=== PATIENT | female | born 1990 | race Caucasian/White ===

== ENCOUNTER 2019-08-28 02:15 | Emergency (ER) | payer BC, OTHER ==
[2019-08-28] MEDS ORDERED: Sodium Chloride 0.9% 10 ML Syringe FLUSH PRN (02:30)
[2019-08-28] MEDS ORDERED: Sodium Chloride 0.9% 2.5 ML Syringe FLUSH PRN (02:30)
[2019-08-28] MEDS ORDERED: Sodium Chloride 0.9% 10 ML SDV IV PRN (02:30)
[2019-08-28] MEDS ORDERED: Acetaminophen 500 MG Tab PO ONE (02:30)
--- NOTE | 2019-08-28 02:34 | EDM.PDOC ---
ED HPI GENERAL MEDICAL PROBLEM - General Chief Complaint: [facility] Problem Stated Complaint: BACK PAIN, Time Seen by Provider: 08/28/19 02:16 Source of Information: Reports: Patient History Limitations: Reports: No Limitations - History of Present Illness INITIAL COMMENTS - FREE TEXT/NARRATIVE: 29-year-old female with a past medical history of factor V Leiden disease, presenting with back pain. 2-day history of bilateral low back pain with vaginal bleeding. Patient states that she had a positive test last week. She went to an OB clinic in [place], [place] where she reportedly had an ultrasound done. They were not able to demonstrate cardiac activity due to early gestational age, but there was some concern for subchorionic hemorrhage. Yesterday evening, the patient began experiencing low back pain along with vaginal bleeding, she states that she was passing tissue. The bleeding has decreased over the past 24 hours, she is only spotting now. She took one 500 mg acetaminophen tablet about 2 to 3 hours prior to arrival. Denies any other complaints. Lower Back Pain Score (Numeric/FACES): 7 - Related Data Allergies Allergy/AdvReac Type Severity Reaction Status Date / Time No Known Allergies Allergy Verified 08/28/19 02:58 Home Meds: Home Meds Escitalopram Oxalate 5 mg PO DAILY 08/28/19 [History] Lisdexamfetamine [Vyvanse] 30 mg PO ASDIRECTED 08/28/19 [History] metroNIDAZOLE [Metronidazole] 500 mg PO BID 7 Days #14 tablet 08/28/19 [Rx] Past Medical History Other Cardiovascular History: Factor V Leiden disease Social & Family History - Family History Cardiac: Reports: Other (See Below) (Factor V Leiden) ED ROS GENERAL - Review of Systems Review Of Systems: See Below Constitutional: Denies: Fever, Chills HEENT: Reports: No Symptoms Respiratory: Denies: Shortness of Breath Cardiovascular: Denies: Chest Pain Endocrine: Reports: No Symptoms GI/Abdominal: Denies: Abdominal Pain, Bloody Stool, Hematemesis, Melena, Nausea , Vomiting : Reports: Other (Vaginal bleeding). Denies: Discharge, Dysuria, Flank Pain, Frequency, Hematuria, Urgency Musculoskeletal: Reports: Back Pain Skin: Reports: No Symptoms Neurological: Reports: No Symptoms Psychiatric: Reports: No Symptoms Hematologic/Lymphatic: Reports: No Symptoms Immunologic: Reports: No Symptoms ED EXAM - Physical Exam Exam: See Below Text/Narrative:: Vital signs reviewed. Nursing notes reviewed. Constitutional: Awake, alert, non-distressed. Head: Normocephalic, atraumatic. Eyes: EOMI, conjunctiva normal, no discharge, no scleral icterus. Ears, Nose, Throat: External ears and ears normal, moist oral mucosa. Cardiovascular: 2+ radial pulse, capillary refill less than 2 seconds. Pulmonary: normal work of breathing, no accessory muscle use. Abdomen/GI: Soft, nontender, nondistended, no guarding or rigidity, no masses. Musculoskeletal: No deformities. Mild tenderness to palpation to the bilateral low back, no tenderness over the spine. Integumentary: Appropriate color for ethnicity, skin is slightly moist, warm, no pallor or jaundice, no rash. Neurologic: Alert, answering questions appropriately, normal speech, no facial droop, moving all extremities well. Psychiatric: Appropriate mood and affect, normal thought process. (Female) Exam: Normal External Exam, Vaginal Bleeding. No: Cervical Dilatation, Cervical Discharge, Cervical Lesions, Tissue Present in Cervix/ Vagina, Vaginal Discharge, Vaginal Lesions, Vaginal Tears Course - Vital Signs Text/Narrative:: Patient hemodynamically stable, afebrile, well-appearing, looks nontoxic. Differential diagnosis includes but is not limited to: portion, incomplete , ectopic , implantation bleeding, molar , cervicitis, and many others. CBC shows a leukocytosis to 20.54 without fever, dysuria, vaginal discharge, abdominal pain to suggest infection. No other infectious symptoms such as cough , shortness of breath, neck stiffness, rash, abdominal pain, diarrhea, vomiting , etc. Patient appears nontoxic. She is not tachycardic. BMP shows mild hypokalemia. Beta hCG is 3526. Urinalysis shows moderate blood and trace leukocyte esterase without urinary infectious symptoms. Blood type is O+. Genital swabs were positive for Gardnerella. 0422: Patient resting comfortably. Awaiting radiology ultrasound read. Transvaginal ultrasound demonstrated no definite intrauterine but did demonstrate thickened endometrium and a hypoechoic oval focus (possible abnormal gestational sac?) Patient will need a repeat ultrasound and repeat beta-hCG level as an outpatient with [facility] given that it is not clear if this is a completed or a of unknown viability at this point. Patient is hemodynamically stable, with no abdominal tenderness or lightheadedness or near syncopal symptoms. Patient is stable to discharge home with outpatient [facility] follow-up. Prescribed oral metronidazole. Strict emergency department/ectopic return precautions were provided, patient indicated understanding. All questions were answered prior to departure. Discharged in good condition. Last Recorded V/S: Last Vital Signs Temp 36.9 C 08/28/19 05:15 Pulse 77 08/28/19 05:15 Resp 16 08/28/19 05:15 BP 120/74 08/28/19 05:15 Pulse Ox 99 08/28/19 05:15 - Orders/Labs/Meds Orders: Active Orders 24 hr Category Date Time Status Pulse Oximetry [RC] ASDIRECTED Care 08/28/19 02:29 Active CHLAMYDIA AND GONORRHEA BY TMA Stat Lab 08/28/19 02:42 Received Sodium Chloride 0.9% [Normal Saline] Med 08/28/19 02:30 Active 10 ml IV ASDIRECTED PRN Sodium Chloride 0.9% [Saline Flush] Med 08/28/19 02:30 Active 10 ml FLUSH ASDIRECTED PRN Sodium Chloride 0.9% [Saline Flush] Med 08/28/19 02:30 Active 2.5 ml FLUSH ASDIRECTED PRN Peripheral IV Insertion Adult [OM.PC] Stat Oth 08/28/19 02:29 Ordered Medication Orders Sodium Chloride (Saline Flush) 10 ml FLUSH ASDIRECTED PRN PRN Reason: Keep Vein Open Last Admin: 08/28/19 03:43 Dose: 10 ml Sodium Chloride (Saline Flush) 2.5 ml FLUSH ASDIRECTED PRN PRN Reason: Keep Vein Open Last Admin: 08/28/19 03:42 Dose: 2.5 ml Sodium Chloride (Normal Saline) 10 ml IV ASDIRECTED PRN PRN Reason: IV Use Labs: Laboratory Tests 08/28/19 08/28/19 08/28/19 Range/Units 02:30 02:30 02:42 WBC (4.0-11.0) K/uL RBC (4.30-5.90) M/uL Hgb (12.0-16.0) g/dL Hct (36.0-46.0) % MCV (80.0-98.0) fL MCH (27.0-32.0) pg MCHC (31.0-37.0) g/dL RDW Std Deviation (28.0-62.0) fl RDW Coeff of Bart (11.0-15.0) % Plt Count (150-400) K/uL MPV (7.40-12.00) fL Neut % (Auto) (48.0-80.0) % Lymph % (Auto) (16.0-40.0) % Dundy % (Auto) (0.0-15.0) % Eos % (Auto) (0.0-7.0) % Baso % (Auto) (0.0-1.5) % Neut # (Auto) (1.4-5.7) K/uL Lymph # (Auto) (0.6-2.4) K/uL Dundy # (Auto) (0.0-0.8) K/uL Eos # (Auto) (0.0-0.7) K/uL Baso # (Auto) (0.0-0.1) K/uL Nucleated RBC % /100WBC Nucleated RBCs # K/uL Sodium (136-145) mmol/L Potassium (3.5-5.1) mmol/L Chloride (98-107) mmol/L Carbon Dioxide (21.0-32.0) mmol/L BUN (7.0-18.0) mg/dL Creatinine (0.6-1.0) mg/dL Est Cr Clr Drug Dosing mL/min Estimated GFR (MDRD) ml/min Glucose (74-106) mg/dL Calcium (8.5-10.1) mg/dL HCG, Quant mIU/mL Urine Color YELLOW Urine Appearance SLT CLOUDY Urine pH 6.5 (5.0-8.0) Ur Specific [place] 1.010 (1.001-1.035) Urine Protein NEGATIVE (NEGATIVE) mg/dL Urine Glucose (UA) NEGATIVE (NEGATIVE) mg/dL Urine Ketones NEGATIVE (NEGATIVE) mg/dL Urine Occult Blood MODERATE H (NEGATIVE) Urine Nitrite NEGATIVE (NEGATIVE) Urine Bilirubin NEGATIVE (NEGATIVE) Urine Urobilinogen 0.2 (<2.0) EU/dL Ur Leukocyte Esterase TRACE H (NEGATIVE) Urine RBC 1-3 (0-2/HPF) Urine WBC 0-2 (0-5/HPF) Ur Epithelial Cells RARE (NONE-FEW) Urine Bacteria RARE (NEGATIVE) Urine HCG, Qual POSITIVE (NEGATIVE) Jessie species DNA NEGATIVE (NEGATIVE) Gardnerella DNA Probe POSITIVE H (NEGATIVE) Trichomonas DNA Probe NEGATIVE (NEGATIVE) Blood Type 08/28/19 08/28/19 08/28/19 Range/Units 02:45 02:45 02:45 WBC 20.54 H (4.0-11.0) K/uL RBC 4.22 L (4.30-5.90) M/uL Hgb 11.9 L (12.0-16.0) g/dL Hct 36.0 (36.0-46.0) % MCV 85.3 (80.0-98.0) fL MCH 28.2 (27.0-32.0) pg MCHC 33.1 (31.0-37.0) g/dL RDW Std Deviation 44.1 (28.0-62.0) fl RDW Coeff of Bart 14 (11.0-15.0) % Plt Count 258 (150-400) K/uL MPV 9.20 (7.40-12.00) fL Neut % (Auto) 76.5 (48.0-80.0) % Lymph % (Auto) 16.9 (16.0-40.0) % Dundy % (Auto) 5.3 (0.0-15.0) % Eos % (Auto) 1.2 (0.0-7.0) % Baso % (Auto) 0.1 (0.0-1.5) % Neut # (Auto) 15.7 H (1.4-5.7) K/uL Lymph # (Auto) 3.5 H (0.6-2.4) K/uL Dundy # (Auto) 1.1 H (0.0-0.8) K/uL Eos # (Auto) 0.3 (0.0-0.7) K/uL Baso # (Auto) 0.0 (0.0-0.1) K/uL Nucleated RBC % 0.0 /100WBC Nucleated RBCs # 0 K/uL Sodium 139 (136-145) mmol/L Potassium 3.4 L (3.5-5.1) mmol/L Chloride 104 (98-107) mmol/L Carbon Dioxide 26.4 (21.0-32.0) mmol/L BUN 6 L (7.0-18.0) mg/dL Creatinine 0.9 (0.6-1.0) mg/dL Est Cr Clr Drug Dosing 90.50 mL/min Estimated GFR (MDRD) > 60.0 ml/min Glucose 103 (74-106) mg/dL Calcium 8.2 L (8.5-10.1) mg/dL HCG, Quant 3526.0 mIU/mL Urine Color Urine Appearance Urine pH (5.0-8.0) Ur Specific [place] (1.001-1.035) Urine Protein (NEGATIVE) mg/dL Urine Glucose (UA) (NEGATIVE) mg/dL Urine Ketones (NEGATIVE) mg/dL Urine Occult Blood (NEGATIVE) Urine Nitrite (NEGATIVE) Urine Bilirubin (NEGATIVE) Urine Urobilinogen (<2.0) EU/dL Ur Leukocyte Esterase (NEGATIVE) Urine RBC (0-2/HPF) Urine WBC (0-5/HPF) Ur Epithelial Cells (NONE-FEW) Urine Bacteria (NEGATIVE) Urine HCG, Qual (NEGATIVE) Jessie species DNA (NEGATIVE) Gardnerella DNA Probe (NEGATIVE) Trichomonas DNA Probe (NEGATIVE) Blood Type O POSITIVE Meds: Medications Generic Name Dose Route Start Last Admin Trade Name Freq PRN Reason Stop Dose Admin Sodium Chloride 10 ml 08/28/19 02:30 08/28/19 03:43 Saline Flush FLUSH 10 ml ASDIRECTED PRN Administration Keep Vein Open Sodium Chloride 2.5 ml 08/28/19 02:30 08/28/19 03:42 Saline Flush FLUSH 2.5 ml ASDIRECTED PRN Administration Keep Vein Open Sodium Chloride 10 ml 08/28/19 02:30 Normal Saline IV ASDIRECTED PRN IV Use Discontinued Medications Generic Name Dose Route Start Last Admin Trade Name Freq PRN Reason Stop Dose Admin Acetaminophen 500 mg 08/28/19 02:30 08/28/19 02:45 Tylenol Extra Strength PO 08/28/19 02:31 500 mg ONETIME ONE Administration Acetaminophen 650 mg 08/28/19 05:10 Tylenol PO 08/28/19 05:11 NOW ONE Departure - Departure Time of Disposition: 05:46 Disposition: Home, Self-Care 01 Condition: Good Clinical Impression: Bacterial vaginosis in , , status unknown - Discharge Information *PRESCRIPTION DRUG MONITORING PROGRAM REVIEWED*: Not Applicable *COPY OF PRESCRIPTION DRUG MONITORING REPORT IN PATIENT KIRSTEN: Not Applicable Prescriptions: metroNIDAZOLE [Metronidazole] 500 mg PO BID 7 Days #14 tablet Instructions: Bacterial Vaginosis Referrals: [facility] [Provider Group] - 3 Days Forms: ED Department Discharge Care Plan Goals: It is crucial that you follow-up with an [facility] clinic in the next week to have a repeat ultrasound and repeat beta-hCG ( hormone level) rechecked. Is not clear at this point if your will progress to viability or not. Return to the emergency part immediately if your pain worsens, if you have increase in vaginal bleeding, if you feel lightheaded/dizzy, if you lose consciousness, or any other new or concerning symptoms. The following information is given to patients seen in the emergency department who are being discharged to home. This information is to outline your options for follow-up care. We provide all patients seen in our emergency department with a follow-up referral. The need for follow-up, as well as the timing and circumstances, are variable depending upon the specifics of your emergency department visit. If you don't have a primary care physician on staff, we will provide you with a referral. We always advise you to contact your personal physician following an emergency department visit to inform them of the circumstance of the visit and for follow-up with them and/or the need for any referrals to a consulting specialist. The emergency department will also refer you to a specialist when appropriate. This referral assures that you have the opportunity for follow-up care with a specialist. All of these measure are taken in an effort to provide you with optimal care, which includes your follow-up. Under all circumstances we always encourage you to contact your private physician who remains a resource for coordinating your care. When calling for follow-up care, please make the office aware that this follow-up is from your recent emergency room visit. If for any reason you are refused follow-up, please contact the [facility] Emergency Department at and asked to speak to the emergency department charge nurse. If you do not have a primary care physician that is caring for you, you can contact these clinics below to set up an appointment to establish care: [facility] - Primary Care [address] [place] [id number] [facility] [address] [place] [id number] Sepsis Event Note - Focused Exam Vital Signs: Vital Signs Temp Pulse Resp BP Pulse Ox 08/28/19 05:15 36.9 C 77 16 120/74 99 08/28/19 03:57 86 16 128/82 99 08/28/19 02:40 36.9 C 81 18 141/92 H 98 Date Exam was Performed: 08/28/19 Time Exam was Performed: 05:43 - My Orders Last 24 Hours: My Active Orders 08/28/19 02:29 Pulse Oximetry [RC] ASDIRECTED Peripheral IV Insertion Adult [OM.PC] Stat 08/28/19 02:30 Sodium Chloride 0.9% [Normal Saline] 10 ml IV ASDIRECTED PRN Sodium Chloride 0.9% [Saline Flush] 10 ml FLUSH ASDIRECTED PRN Sodium Chloride 0.9% [Saline Flush] 2.5 ml FLUSH ASDIRECTED PRN 08/28/19 02:42 CHLAMYDIA AND GONORRHEA BY TMA Stat - Assessment/Plan Last 24 Hours: My Active Orders 08/28/19 02:29 Pulse Oximetry [RC] ASDIRECTED Peripheral IV Insertion Adult [OM.PC] Stat 08/28/19 02:30 Sodium Chloride 0.9% [Normal Saline] 10 ml IV ASDIRECTED PRN Sodium Chloride 0.9% [Saline Flush] 10 ml FLUSH ASDIRECTED PRN Sodium Chloride 0.9% [Saline Flush] 2.5 ml FLUSH ASDIRECTED PRN 08/28/19 02:42 CHLAMYDIA AND GONORRHEA BY TMA Stat
[2019-08-28 03:38] LABS: BLOOD UREA NITROGEN,BUN 6 mg/dL (7.0-18.0); CARBON DIOXIDE,CO2 26.4 mmol/L (21.0-32.0); CHLORIDE,CL 104 mmol/L (98-107); GLUCOSE RANDOM 103 mg/dL (74-106); POTASSIUM,K 3.4 mmol/L (3.5-5.1); SODIUM,NA 139 mmol/L (136-145)
[2019-08-28] MEDS ORDERED: Acetaminophen 325 MG Tab PO ONE (05:10)
--- NOTE | 2019-08-28 05:22 | US ---
Indication: , vaginal bleeding, gestational age 14 weeks 5 days by LMP Technique: Multiple grayscale and Doppler sonographic images of the pelvis. Scanning was performed transabdominally and transvaginally. Comparison: None Findings: The uterus measures 8.4 x 5.7 x 7.7 cm. The endometrium is thickened, measuring up to 3.5 cm. Within the right fundal endometrium, note is made a heterogeneous hypoechoic oval focus measuring 1.9 x 1.0 x 1.6 cm. No definite intrauterine gestational sac is demonstrated. The right ovary measures 3.9 x 2.0 x 3.5 cm and demonstrates normal follicular changes.. Intact vascular flow is demonstrated to the right ovary. The left ovary measures 4.2 x 2.2 x 4.5 cm and also demonstrates normal follicular changes.. Intact vascular flow is demonstrated to the left ovary. There is no suspicious adnexal mass. Impression: 1. No definite intrauterine gestation. Thickened endometrium measuring up to 3.5 cm. Oval heterogeneously hypoechoic focus in the right fundal endometrium measuring up to 1.9 cm may represent an abnormal gestational sac. Correlate with serial serum beta HCG levels and follow-up ultrasound. 2. Unremarkable ovaries. No suspicious adnexal mass. Dictated by Tonya Landa MD @ Aug 28 2019 5:07AM Signed by Dr. Tonya Landa @ Aug 28 2019 5:20AM
== END 2019-08-28 06:00 | disposition home or self-care (01) ==
LOC: MW.ED 02:15
DX: O23.591 Infection of other part of genital tract in pregnancy, first trimester (principal)
CPT/HCPCS: 36415; 76817; 80048; 81001; 81025; 84702; 85025; 86900; 86901; 87480; 87491; 87510; 87591; 87660; 99284; A9270

== ENCOUNTER 2019-08-29 21:57 | Emergency (ER) | payer BC ==
[2019-08-29] MEDS ORDERED: Sodium Chloride 0.9% 1,000 ML IV ONE (22:34)
[2019-08-29] MEDS ORDERED: Ondansetron 4 MG/2 ML SDV IVPUSH ONE (22:34)
--- NOTE | 2019-08-30 00:38 | EDM.PDOC ---
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 Patient returns today with having vaginal bleeding and passing several large clots 1 of which she felt there was some tissue in the clot. Patient's blood type is O+. She has gone through approximately 15 pads today. She is having crampy pelvic pain. Patient is not feeling lightheaded when she stands up. Her past medical history is complicated with her being factor V Leiden deficiency. She has been trying to follow-up with [facility] for her OB follow-up but is been getting an answering machine when she calls over this holiday weekend. She denies any dysuria fever chills. Nauseous but has not been vomiting. Duration: Day(s): (two), Getting Worse Location: Reports: Pelvis Quality: Reports: Ache Severity: Moderate Improves with: Reports: None Worsens with: Reports: None abdomen Pain Score (Numeric/FACES): 7 - Related Data Allergies Allergy/AdvReac Type Severity Reaction Status Date / Time No Known Allergies Allergy Verified 08/29/19 22:09 Home Meds: Home Meds . 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: Musculoskeletal History: Reports: None Neurological History: Reports: None Psychiatric History: Reports: ADHD, Depression Endocrine/Metabolic History: Reports: None Hematologic History: Reports: None Immunologic History: Reports: None Oncologic (Cancer) History: Reports: None Dermatologic History: Reports: None - Infectious Disease History Infectious Disease History: Reports: None - Past Surgical History Head Surgeries/Procedures: Reports: None HEENT Surgical History: Reports: None Cardiovascular Surgical History: Reports: None GI Surgical History: Reports: Hernia, Inguinal Musculoskeletal Surgical History: Reports: Shoulder Surgery Social & Family History - Family History Family Medical History: Noncontributory Cardiac: Reports: Other (See Below) - Tobacco Use Smoking Status *Q: Current Some Day Smoker Years of Tobacco use: 8 Packs/Tins Daily: 0.1 - Caffeine Use Caffeine Use: Reports: None - Recreational Drug Use Recreational Drug Use: No ED ROS GENERAL - Review of Systems Review Of Systems: Comprehensive ROS is negative, except as noted in HPI. ED EXAM - Physical Exam Exam: See Below Exam Limited By: No Limitations General Appearance: Alert, No Apparent Distress, Other (Patient appears somewhat uncomfortable at times.) Head: Normocephalic Neck: Normal Inspection, Supple Respiratory/Chest: No Respiratory Distress, Lungs Clear, Normal Breath Sounds Cardiovascular: Normal Peripheral Pulses, Regular Rate, Rhythm, No Edema GI/Abdominal Exam: Normal Bowel Sounds, Soft, No Distention, No Mass, Tender. No: Guarding, Rebound Extremities: No: Non-Tender, No Pedal Edema Neurological: Alert, Oriented Psychiatric: Normal Affect Skin Exam: Warm, Dry, Normal Color Course - Vital Signs Text/Narrative:: Patient was given a liter of IV fluid. Her quantitative beta-hCG is 980. Patient had an ultrasound done 2 days ago and I discussed her case and symptoms with Dr. Forrest at [facility] who wants the patient to call today and she will be followed up with there. She did not want a repeat ultrasound done today. I am giving her a prescription for some Waldo and Zofran ODT. She may return to emergency department if symptoms worsen otherwise follow-up with OB today. Last Recorded V/S: Last Vital Signs Temp 36.4 C 08/29/19 22:03 Pulse 79 08/29/19 23:30 Resp 18 08/29/19 23:30 BP 115/74 08/29/19 23:30 Pulse Ox 97 08/29/19 23:30 - Orders/Labs/Meds Labs: Laboratory Tests 08/29/19 08/29/19 08/29/19 Range/Units 22:15 22:46 22:46 WBC 10.85 (4.0-11.0) K/uL RBC 4.45 (4.30-5.90) M/uL Hgb 12.7 (12.0-16.0) g/dL Hct 38.2 (36.0-46.0) % MCV 85.8 (80.0-98.0) fL MCH 28.5 (27.0-32.0) pg MCHC 33.2 (31.0-37.0) g/dL RDW Std Deviation 45.3 (28.0-62.0) fl RDW Coeff of Bart 14 (11.0-15.0) % Plt Count 291 (150-400) K/uL MPV 9.40 (7.40-12.00) fL Neut % (Auto) 54.7 (48.0-80.0) % Lymph % (Auto) 34.1 (16.0-40.0) % Rhea % (Auto) 7.9 (0.0-15.0) % Eos % (Auto) 3.1 (0.0-7.0) % Baso % (Auto) 0.2 (0.0-1.5) % Neut # (Auto) 5.9 H (1.4-5.7) K/uL Lymph # (Auto) 3.7 H (0.6-2.4) K/uL Rhea # (Auto) 0.9 H (0.0-0.8) K/uL Eos # (Auto) 0.3 (0.0-0.7) K/uL Baso # (Auto) 0.0 (0.0-0.1) K/uL Nucleated RBC % 0.0 /100WBC Nucleated RBCs # 0 K/uL HCG, Qual POSITIVE H (NEG) HCG, Quant mIU/mL Urine Color YELLOW Urine Appearance CLEAR Urine pH 6.5 (5.0-8.0) Ur Specific [place] >= 1.030 (1.001-1.035) Urine Protein TRACE H (NEGATIVE) mg/dL Urine Glucose (UA) NEGATIVE (NEGATIVE) mg/dL Urine Ketones NEGATIVE (NEGATIVE) mg/dL Urine Occult Blood LARGE H (NEGATIVE) Urine Nitrite NEGATIVE (NEGATIVE) Urine Bilirubin SMALL H (NEGATIVE) Urine Ictotest NEGATIVE Urine Urobilinogen 0.2 (<2.0) EU/dL Ur Leukocyte Esterase NEGATIVE (NEGATIVE) Urine RBC 7-9 (0-2/HPF) Urine WBC 0-1 (0-5/HPF) Ur Epithelial Cells RARE (NONE-FEW) Urine Bacteria FEW (NEGATIVE) Urine Mucus LIGHT (NONE-MOD) 08/29/19 Range/Units 22:46 WBC (4.0-11.0) K/uL RBC (4.30-5.90) M/uL Hgb (12.0-16.0) g/dL Hct (36.0-46.0) % MCV (80.0-98.0) fL MCH (27.0-32.0) pg MCHC (31.0-37.0) g/dL RDW Std Deviation (28.0-62.0) fl RDW Coeff of Bart (11.0-15.0) % Plt Count (150-400) K/uL MPV (7.40-12.00) fL Neut % (Auto) (48.0-80.0) % Lymph % (Auto) (16.0-40.0) % Rhea % (Auto) (0.0-15.0) % Eos % (Auto) (0.0-7.0) % Baso % (Auto) (0.0-1.5) % Neut # (Auto) (1.4-5.7) K/uL Lymph # (Auto) (0.6-2.4) K/uL Rhea # (Auto) (0.0-0.8) K/uL Eos # (Auto) (0.0-0.7) K/uL Baso # (Auto) (0.0-0.1) K/uL Nucleated RBC % /100WBC Nucleated RBCs # K/uL HCG, Qual (NEG) HCG, Quant 982.0 mIU/mL Urine Color Urine Appearance Urine pH (5.0-8.0) Ur Specific [place] (1.001-1.035) Urine Protein (NEGATIVE) mg/dL Urine Glucose (UA) (NEGATIVE) mg/dL Urine Ketones (NEGATIVE) mg/dL Urine Occult Blood (NEGATIVE) Urine Nitrite (NEGATIVE) Urine Bilirubin (NEGATIVE) Urine Ictotest Urine Urobilinogen (<2.0) EU/dL Ur Leukocyte Esterase (NEGATIVE) Urine RBC (0-2/HPF) Urine WBC (0-5/HPF) Ur Epithelial Cells (NONE-FEW) Urine Bacteria (NEGATIVE) Urine Mucus (NONE-MOD) Meds: Medications Discontinued Medications Generic Name Dose Route Start Last Admin Trade Name Ramboq PRN Reason Stop Dose Admin Sodium Chloride 1,000 mls @ 999 mls/hr 08/29/19 22:34 08/29/19 22:48 Normal Saline IV 08/29/19 23:34 999 mls/hr .BOLUS ONE Administration Ondansetron HCl 4 mg 08/29/19 22:34 08/29/19 22:50 Zofran IVPUSH 08/29/19 22:35 4 mg ONETIME ONE Administration Departure - Departure Time of Disposition: 00:40 Disposition: Home, Self-Care 01 Clinical Impression: Incomplete - Discharge Information Instructions: Incomplete Miscarriage Referrals: PCP,None [Primary Care Provider] - Additional Instructions: The following information is given to patients seen in the emergency department who are being discharged to home. This information is to outline your options for follow-up care. We provide all patients seen in our emergency department with a follow-up referral. The need for follow-up, as well as the timing and circumstances, are variable depending upon the specifics of your emergency department visit. If you don't have a primary care physician on staff, we will provide you with a referral. We always advise you to contact your personal physician following an emergency department visit to inform them of the circumstance of the visit and for follow-up with them and/or the need for any referrals to a consulting specialist. The emergency department will also refer you to a specialist when appropriate. This referral assures that you have the opportunity for follow-up care with a specialist. All of these measure are taken in an effort to provide you with optimal care, which includes your follow-up. Under all circumstances we always encourage you to contact your private physician who remains a resource for coordinating your care. When calling for follow-up care, please make the office aware that this follow-up is from your recent emergency room visit. If for any reason you are refused follow-up, please contact the [facility] Emergency Department at and asked to speak to the emergency department charge nurse. Care Plan Goals: Follow-up with the [facility] today by calling them this morning for an appointment. Dr. Forrest is aware of your findings and is expecting to be followed up with today. Waldo and Eloisa as needed. Return to ER symptoms are worse. Increase fluids. Ibuprofen with meals. Sepsis Event Note - Evaluation Sepsis Screening Result: No Definite Risk - Focused Exam Vital Signs: Vital Signs Temp Pulse Resp BP Pulse Ox 08/29/19 23:30 79 18 115/74 97 08/29/19 22:03 36.4 C 92 17 132/92 H 99 Date Exam was Performed: 08/30/19 Time Exam was Performed: 00:30
== END 2019-08-30 00:50 | disposition home or self-care (01) ==
LOC: MW.ED 21:57
DX: O03.4 Incomplete spontaneous abortion without complication (principal); F17.210 Nicotine dependence, cigarettes, uncomplicated
CPT/HCPCS: 36415; 81001; 84702; 84703; 85025; 96374; 99284; J2405; J7030; 99283

== ENCOUNTER 2021-01-20 17:52 | Emergency (ER) | payer BC ==
[2021-01-20 20:00] LABS: BLOOD UREA NITROGEN,BUN 6 mg/dL (7.0-18.0); CARBON DIOXIDE,CO2 27.8 mmol/L (21.0-32.0); CHLORIDE,CL 107 mmol/L (98-107); GLUCOSE RANDOM 108 mg/dL (74-106); SODIUM,NA 143 mmol/L (136-145)
--- NOTE | 2021-01-20 22:48 | US ---
HISTORY: Pelvic pain and bleeding. TECHNIQUE: Ultrasound of the pelvis using grayscale and color Doppler. Transvaginal technique. COMPARISON: None. FINDINGS: Retroflexed uterus. No intrauterine gestational sac. Heterogeneous endometrium measuring up to 13 mm in thickness. No intrauterine gestational sac. Right ovary measures 2.8 x 2.2 x 3.2 cm. Normal appearance the right ovary. Blood flow in the right ovary by color Doppler. Left ovary measures 4.1 x 2.8 x 2.8 cm. 2.4 x 2.1 x 2.5 cm complex cystic structure with echogenic components in the left ovary. Blood flow at the periphery of this structure without definite internal color Doppler signal. Small amount of free fluid in the pelvis. IMPRESSION: 1. of unknown location. No intrauterine gestational sac. 2. 2.5 cm complex cystic structure in the left ovary. Differential includes complex cyst such as a hemorrhagic cyst and ectopic gestation. 3. Small amount of free fluid in the pelvis. Dictated by Dionicio Orr MD @ 01/20/2021 10:47:07 PM (Electronically Signed)
--- NOTE | 2021-01-20 22:59 | EDM.PDOC ---
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 Patient reports that she did a test at that time and it was positive. Patient presents ER today secondary to persistent vaginal bleeding and abdominal cramping and bilateral lower back pain and cramping.. Patient reports that she is gone through approximately 3 pads in the last 24 hours. Patient has any recent fevers, shakes, chills, nausea, vomiting, diarrhea, seizure, frequency or urgency, chest pain, shortness of breath, dizziness, syncope. Review of systems: As per history of present illness and below otherwise all systems reviewed and negative. Past medical history: As per history of present illness and as reviewed below otherwise noncontributory. Surgical history: As per history of present illness and as reviewed below otherwise noncontributory. Social history: No reported history of drug abuse. Family history: As per history of present illness and as reviewed below otherwise noncontributory. Physical exam: This patient was seen and evaluated during the 2019 SARS-CoV-2 novel coronavirus pandemic period. Community viral transmission is ongoing at time of this encounter and the emergency department is operating under pandemic response pr ocedures. Constitutional: Patient is oriented to person, place, and time. Appears well- developed and well-nourished. No distress. HEENT: Moist mucous membranes Head: Normocephalic and atraumatic Eyes: Right eye exhibits no discharge. Left eye exhibits no discharge. No scleral icterus Neck: Normal range of motion. No tracheal deviation present. Cardiovascular: Normal rate and regular rhythm. Pulmonary: Effort normal, no respiratory distress. Abd: Soft, nondistended, no rebound/guarding, no psoas or obturator signs, no tenderness at Mcberney's point, no Peña's sign. Pt does not present with an exam that would be consistent with an acute surgical abdomen at this time. Mild tenderness to palpation suprapubic region. Mild tenderness palpation bilateral flanks. Musculoskeletal: Normal range of motion Neurologic: Alert and oriented to person, place and time. Skin: [place], warm and dry. Psychiatric: Normal mood and affect. Behavior is normal. Judgment and thought content normal. Nursing note and vital signs have been reviewed Diagnostics: Ultrasound reveals of unknown location. No intrauterine gestational sac. A 2.5 cm complex cystic structure in the left ovary. Differential includes complex cyst such as a hemorrhagic cyst ectopic gestation. Small amount of free fluid in the pelvis. Beta-hCG equals 335. Patient is [employer]: [] Assessment and plan: 31-year-old female who presents ER today with signs and symptoms consistent with a likely miscarriage/threatened miscarriage. Patient's ultrasound did not reveal an intrauterine gestational sac. Her beta-hCG is only 335 which is much lower than I would expect for 6-week gestation. Patient has had some vaginal bleeding. I discussed with the patient the need to follow-up with her primary ca re physician for repeat beta hCG in 2 to 3 days to assist with confirming versus miscarriage. Patient also understands the applications of a 2.5 cm complex cystic structure in the left ovary and the concern for possible early ectopic . Patient understands return to ER for she has any worsening pain or symptoms or concerns. Reassessment at the time of disposition demonstrates that the patient is in no acute distress. The patient has remained stable throughout the entire ED visit and is without objective evidence for acute process requiring urgent intervention or hospitalization. The patient is stable for discharge, counseling is provided as documented above, discussed symptomatic treatment and specific conditions for return. I have spoken with the patient/caregiver and discussed todays findings, in addition to providing specific details for the plan of care. Questions are answered and there is agreement with the plan. Definitive disposition and diagnosis as appropriate pending reevaluation and review of above. back Pain Score (Numeric/FACES): 6 - Related Data Allergies Allergy/AdvReac Type Severity Reaction Status Date / Time No Known Allergies Allergy Verified 01/20/21 18:54 Home Meds: Home Meds . 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 History: Reports: None Neurological History: Reports: None Psychiatric History: Reports: Anxiety, Depression Endocrine/Metabolic History: Reports: None Hematologic History: Reports: Other (See Below) Other Hematologic History: Factor 5 Von Leiden Immunologic History: Reports: None Oncologic (Cancer) History: Reports: None Dermatologic History: Reports: None - Infectious Disease History Infectious Disease History: Reports: Chicken Pox - Past Surgical History Head Surgeries/Procedures: Reports: None HEENT Surgical History: Reports: None Cardiovascular Surgical History: Reports: None GI Surgical History: Reports: Hernia, Inguinal Musculoskeletal Surgical History: Reports: Shoulder Surgery Social & Family History - Family History Family Medical History: No Pertinent Family History Cardiac: Reports: Other (See Below) - Tobacco Use Tobacco Use Status *Q: Current Some Day Tobacco User Years of Tobacco use: 10 Packs/Tins Daily: 0.2 - Caffeine Use Caffeine Use: Reports: Coffee, Energy Drinks, Soda, Tea - Recreational Drug Use Recreational Drug Use: No ED ROS GENERAL - Review of Systems Review Of Systems: See Below ED EXAM, GENERAL - Physical Exam Exam: See Below Course - Vital Signs Last Recorded V/S: Last Vital Signs Temp 97.2 F 01/20/21 18:48 Pulse 88 01/20/21 18:48 Resp 16 01/20/21 18:48 BP 134/72 01/20/21 18:48 Pulse Ox 99 01/20/21 18:48 - Orders/Labs/Meds Labs: Laboratory Tests 01/20/21 01/20/21 01/20/21 Range/Units 19:23 19:23 19:23 WBC 8.28 (4.0-11.0) K/uL RBC 4.45 (4.30-5.90) M/uL Hgb 12.5 (12.0-16.0) g/dL Hct 37.1 (36.0-46.0) % MCV 83.4 (80.0-98.0) fL MCH 28.1 (27.0-32.0) pg MCHC 33.7 (31.0-37.0) g/dL RDW Std Deviation 41.8 (28.0-62.0) fl RDW Coeff of Bart 14 (11.0-15.0) % Plt Count 263 (150-400) K/uL MPV 9.30 (7.40-12.00) fL Neut % (Auto) 52.4 (48.0-80.0) % Lymph % (Auto) 37.1 (16.0-40.0) % [place] % (Auto) 8.2 (0.0-15.0) % Eos % (Auto) 2.2 (0.0-7.0) % Baso % (Auto) 0.1 (0.0-1.5) % Neut # (Auto) 4.3 (1.4-5.7) K/uL Lymph # (Auto) 3.1 H (0.6-2.4) K/uL [place] # (Auto) 0.7 (0.0-0.8) K/uL Eos # (Auto) 0.2 (0.0-0.7) K/uL Baso # (Auto) 0.0 (0.0-0.1) K/uL Nucleated RBC % 0.0 /100WBC Nucleated RBCs # 0 K/uL Sodium 143 (136-145) mmol/L Potassium 4.0 (3.5-5.1) mmol/L Chloride 107 (98-107) mmol/L Carbon Dioxide 27.8 (21.0-32.0) mmol/L BUN 6 L (7.0-18.0) mg/dL Creatinine 0.8 (0.6-1.0) mg/dL Est Cr Clr Drug Dosing 103.73 mL/min Estimated GFR (MDRD) > 60.0 ml/min Glucose 108 H (74-106) mg/dL Calcium 8.8 (8.5-10.1) mg/dL Total Bilirubin 0.2 (0.2-1.0) mg/dL AST 13 L (15-37) IU/L ALT 20 (14-63) IU/L Alkaline Phosphatase 81 (46-116) U/L Total Protein 6.8 (6.4-8.2) g/dL Albumin 3.6 (3.4-5.0) g/dL Globulin 3.2 (2.6-4.0) g/dL Albumin/Globulin Ratio 1.1 (0.9-1.6) HCG, Quant 335.0 mIU/mL Urine Color Urine Appearance Urine pH (5.0-8.0) Ur Specific [place] (1.001-1.035) Urine Protein (NEGATIVE) mg/dL Urine Glucose (UA) (NEGATIVE) mg/dL Urine Ketones (NEGATIVE) mg/dL Urine Occult Blood (NEGATIVE) Urine Nitrite (NEGATIVE) Urine Bilirubin (NEGATIVE) Urine Urobilinogen (<2.0) EU/dL Ur Leukocyte Esterase (NEGATIVE) Urine RBC (0-2/HPF) Urine WBC (0-5/HPF) Ur Epithelial Cells (NONE-FEW) Amorphous Sediment (NEGATIVE) Urine Bacteria (NEGATIVE) Blood Type O POSITIVE 01/20/21 Range/Units 22:05 WBC (4.0-11.0) K/uL RBC (4.30-5.90) M/uL Hgb (12.0-16.0) g/dL Hct (36.0-46.0) % MCV (80.0-98.0) fL MCH (27.0-32.0) pg MCHC (31.0-37.0) g/dL RDW Std Deviation (28.0-62.0) fl RDW Coeff of Bart (11.0-15.0) % Plt Count (150-400) K/uL MPV (7.40-12.00) fL Neut % (Auto) (48.0-80.0) % Lymph % (Auto) (16.0-40.0) % [place] % (Auto) (0.0-15.0) % Eos % (Auto) (0.0-7.0) % Baso % (Auto) (0.0-1.5) % Neut # (Auto) (1.4-5.7) K/uL Lymph # (Auto) (0.6-2.4) K/uL [place] # (Auto) (0.0-0.8) K/uL Eos # (Auto) (0.0-0.7) K/uL Baso # (Auto) (0.0-0.1) K/uL Nucleated RBC % /100WBC Nucleated RBCs # K/uL Sodium (136-145) mmol/L Potassium (3.5-5.1) mmol/L Chloride (98-107) mmol/L Carbon Dioxide (21.0-32.0) mmol/L BUN (7.0-18.0) mg/dL Creatinine (0.6-1.0) mg/dL Est Cr Clr Drug Dosing mL/min Estimated GFR (MDRD) ml/min Glucose (74-106) mg/dL Calcium (8.5-10.1) mg/dL Total Bilirubin (0.2-1.0) mg/dL AST (15-37) IU/L ALT (14-63) IU/L Alkaline Phosphatase (46-116) U/L Total Protein (6.4-8.2) g/dL Albumin (3.4-5.0) g/dL Globulin (2.6-4.0) g/dL Albumin/Globulin Ratio (0.9-1.6) HCG, Quant mIU/mL Urine Color YELLOW Urine Appearance SLT CLOUDY Urine pH 6.5 (5.0-8.0) Ur Specific [place] 1.025 (1.001-1.035) Urine Protein NEGATIVE (NEGATIVE) mg/dL Urine Glucose (UA) NEGATIVE (NEGATIVE) mg/dL Urine Ketones NEGATIVE (NEGATIVE) mg/dL Urine Occult Blood LARGE H (NEGATIVE) Urine Nitrite NEGATIVE (NEGATIVE) Urine Bilirubin NEGATIVE (NEGATIVE) Urine Urobilinogen 0.2 (<2.0) EU/dL Ur Leukocyte Esterase NEGATIVE (NEGATIVE) Urine RBC TOO NUMEROUS TO CT H (0-2/HPF) Urine WBC 0-2 (0-5/HPF) Ur Epithelial Cells FEW (NONE-FEW) Amorphous Sediment FEW (NEGATIVE) Urine Bacteria 2+ H (NEGATIVE) Blood Type Departure - Departure Time of Disposition: 22:57 Disposition: Home, Self-Care 01 Condition: Good Clinical Impression: Threatened - Discharge Information Instructions: Threatened Miscarriage Referrals: PCP,None [Primary Care Provider] - Additional Instructions: Your seen and evaluated in the ER today secondary to vaginal bleeding while . The ultrasound report reveals no intrauterine gestational sac. Given your expected dates of your last menstrual period, the low beta-hCG, the ultrasound results it appears that you are likely having a miscarriage however it is impossible to rule out an early or early ectopic . Please make an appointment to see your OB/family doctor in the next 2 days for repeat hormone level and repeat evaluation. Return to the ER if you start having worsening abdominal pain or discomfort or if you start having increasing in your bleeding that would be heavier than a normal period. Please take the ultrasound report and the hormone level with you to your doctor's appointment. Your blood type is O+. The following information is given to patients seen in the emergency department who are being discharged to home. This information is to outline your options for follow-up care. We provide all patients seen in our emergency department with a follow-up referral. The need for follow-up, as well as the timing and circumstances, are variable depending upon the specifics of your emergency department visit. If you don't have a primary care physician on staff, we will provide you with a referral. We always advise you to contact your personal physician following an e mergency department visit to inform them of the circumstance of the visit and for follow-up with them and/or the need for any referrals to a consulting specialist. The emergency department will also refer you to a specialist when appropriate. This referral assures that you have the opportunity for follow-up care with a specialist. All of these measure are taken in an effort to provide you with op timal care, which includes your follow-up. Under all circumstances we always encourage you to contact your private physician who remains a resource for coordinating your care. When calling for follow-up care, please make the office aware that this follow-up is from your recent emergency room visit. If for any reason you are refused follow-up, please contact the [facility] Emergency Department at and asked to speak to the emergency department charge nurse. [facility] - Primary Care [address] [place] [address] [id number] [address] [address] Sepsis Event Note (ED) - Evaluation Sepsis Screening Result: No Definite Risk - Focused Exam Vital Signs: Vital Signs Temp Pulse Resp BP Pulse Ox 01/20/21 18:48 97.2 F 88 16 134/72 99
== END 2021-01-20 23:04 | disposition home or self-care (01) ==
LOC: MW.ED 17:52
DX: O20.0 Threatened abortion (principal); Z72.0 Tobacco use; Z3A.01 Less than 8 weeks gestation of pregnancy
CPT/HCPCS: 36415; 76801; 76801-26; 80053; 81001; 84702; 85025; 86900; 86901; 99284-25

== ENCOUNTER 2022-05-29 05:47 | Inpatient (IN) | payer BC ==
[2022-05-29] MEDS ORDERED: Oxytocin 10 Units/1 ML SDV ONE (06:24)
[2022-05-29] MEDS ORDERED: Water For Injection, Sterile 40 ML ONE (06:24)
[2022-05-29] MEDS ORDERED: Ropivacaine 0.5% 5 MG/ML 30 ML SDV ONE (06:24)
[2022-05-29] MEDS ORDERED: ePHEDrine 50 MG/ML SDV ONE (06:24)
[2022-05-29] MEDS ORDERED: Ondansetron 4 MG/2 ML SDV ONE (06:24)
[2022-05-29] MEDS ORDERED: Bupivacaine 0.5% 10 ML SDV ONE (06:24)
[2022-05-29] MEDS ORDERED: ceFAZolin 1 GM Vial ONE (06:24)
[2022-05-29] MEDS ORDERED: Phenylephrine 1% 10 MG/ML SDV ONE (06:24)
[2022-05-29] MEDS ORDERED: Azithromycin 500 MG Vial ONE (06:24)
[2022-05-29] MEDS ORDERED: Dexamethasone 4 MG/ML 5 ML MDV ONE (06:24)
[2022-05-29] MEDS ORDERED: Dexmedetomidine 200 MCG/2 ML SDV ONE (06:24)
[2022-05-29] MEDS ORDERED: Sodium Chloride 0.9% 10 ML Syringe FLUSH PRN (06:32)
[2022-05-29] MEDS ORDERED: Citric Acid/Sodium Citrate Solution 30 ML Cup PO ONE (06:32)
[2022-05-29] MEDS ORDERED: Sodium Chloride 0.9% 2.5 ML Syringe FLUSH PRN (06:32)
[2022-05-29] MEDS ORDERED: Sodium Chloride 0.9% 20 ML SDV IV PRN (06:32)
[2022-05-29] MEDS ORDERED: Morphine PF 10 MG/10 ML SDV ONE (06:38)
[2022-05-29] MEDS ORDERED: Lactated Ringers 1,000 ML IV SCH ×2 (06:45→08:45)
[2022-05-29] MEDS ORDERED: Oxytocin/0.9 % Sodium Chloride 30 UNIT/500 ML BAG IV SCH ×2 (06:45→08:45)
[2022-05-29] MEDS ORDERED: Ondansetron 4 MG/2 ML SDV IVPUSH PRN ×2 (08:44→09:09)
[2022-05-29] MEDS ORDERED: Acetaminophen/oxyCODONE 325-5 MG Tab PO PRN (08:44)
[2022-05-29] MEDS ORDERED: Bisacodyl 10 MG Supp RECTAL PRN (08:44)
[2022-05-29] MEDS ORDERED: Methylergonovine 0.2 MG/1 ML Amp IM PRN (08:44)
[2022-05-29] MEDS ORDERED: Tranexamic Acid 1,000 MG in Sodium Chloride 0.9% 100 ML IV PRN (08:44)
[2022-05-29] MEDS ORDERED: Lanolin 100% Cream 7 GM Tube TOP PRN (08:44)
[2022-05-29] MEDS ORDERED: Oxytocin 10 Units/1 ML SDV IM PRN (08:44)
[2022-05-29] MEDS ORDERED: diphenhydrAMINE 50 MG/ML SDV IVPUSH PRN ×2 (08:44→09:09)
[2022-05-29] MEDS ORDERED: Misoprostol 200 MCG Tab RECTAL PRN (08:44)
[2022-05-29] MEDS ORDERED: Ketorolac 30 MG/ML SDV IVPUSH SCH (08:45)
[2022-05-29] MEDS ORDERED: Naloxone 0.4 MG/ML SDV IVPUSH PRN (09:09)
[2022-05-29] MEDS ORDERED: Nalbuphine HCl 10 MG/ 1ML Amp IVPUSH PRN (09:11)
[2022-05-29] MEDS ORDERED: ePHEDrine 50 MG/ML SDV IVPUSH PRN (09:13)
[2022-05-29] MEDS ORDERED: Phenylephrine HCl In 0.9% NaCl 1 MG/10 ML Vial IVPUSH SCH (09:15)
[2022-05-29] MEDS: Docusate Sodium 100 MG Cap PO SCH (21:09)
[2022-05-29] MEDS: Ketorolac 30 MG/ML SDV IVPUSH SCH (21:54)
[2022-05-30] MEDS: Ketorolac 30 MG/ML SDV IVPUSH SCH ×3 (04:00→15:51)
[2022-05-30] MEDS: Docusate Sodium 100 MG Cap PO SCH ×2 (09:52→20:13)
[2022-05-30] MEDS ORDERED: Ibuprofen 800 MG Tab PO PRN (14:45)
[2022-05-30] MEDS: Acetaminophen/oxyCODONE 325-5 MG Tab PO PRN (20:13)
[2022-05-31] MEDS: Acetaminophen/oxyCODONE 325-5 MG Tab PO PRN ×2 (04:09→09:42)
[2022-05-31] MEDS: Docusate Sodium 100 MG Cap PO SCH (09:38)
== END 2022-05-31 12:42 | disposition home or self-care (01) | DRG 540 ==
LOC: MW.OBCHECK 05:47 → MW.OB 05:49 → MW.OBCHECK 06:31 → MW.OB 06:32
PROVIDERS: ADMIT Obstetrics & Gynecology Obstetrics; ATTEND Obstetrics & Gynecology Obstetrics
PROC: 10D00Z1 Extraction of Products of Conception, Low, Open Approach (ICD-10-PCS; principal; 2022-05-29)
DX: O32.1XX0 Maternal care for breech presentation, not applicable or unspecified (principal); Z37.0 Single live birth; D68.51 Activated protein C resistance; O67.0 Intrapartum hemorrhage with coagulation defect; O99.62 Diseases of the digestive system complicating childbirth; K21.9 Gastro-esophageal reflux disease without esophagitis; Z3A.39 39 weeks gestation of pregnancy; Z20.822 Contact with and (suspected) exposure to COVID-19
CPT/HCPCS: 01961; 36415; 59025; 64488; 85014; 85018; 85027; 86592; 86850; 86900; 86901; A9270-GY; J0456; J0690; J1100; J1885; J2274; J2370; J2405; J2590; J2795; J3490; U0002